=== PATIENT | male | born 1950 | race Two or more races ===

== ENCOUNTER 2017-10-02 05:29 | Inpatient (IN) | payer BC ==
[2017-10-02] VITALS (9 sets, daily range): BP systolic 97–119; BP diastolic 50–69
[~2017-10-02] VITALS: Ht 182.9 cm; Wt 124.7 kg
[2017-10-02] MEDS ORDERED: CEFAZOLIN SODIUM/DEXTROSE,ISO 50 ML IV ONE (06:17)
[2017-10-02] MEDS ORDERED: CELECOXIB 100 MG CAPSULE ONE (06:17)
[2017-10-02] MEDS ORDERED: oxyCODONE HCL SR 10MG TAB.SR.12H PO ONE (06:17)
[2017-10-02] MEDS ORDERED: ACETAMINOPHEN 325 MG TABLET ONE (06:17)
[2017-10-02] MEDS ORDERED: BUPIVACAINE 0.5 % PF 150 MG/30 ML VIAL ONE ×2 (06:28→07:12)
[2017-10-02] MEDS ORDERED: BACITRACIN 50000 UNITS/VIAL ONE ×3 (06:28→09:20)
[2017-10-02] MEDS ORDERED: KETOROLAC TROMETHAMINE INJ 30 MG/ML VIAL ONE ×2 (06:28→07:12)
[2017-10-02] MEDS ORDERED: FENTANYL PF 100MCG/2ML AMPUL ONE (07:19)
[2017-10-02] MEDS ORDERED: ROCURONIUM BROMIDE 50 MG/5 ML ONE (07:20)
[2017-10-02] MEDS ORDERED: MIDAZOLAM HCL 2 MG/2ML VIAL ONE (07:20)
[2017-10-02] MEDS ORDERED: TRANEXAMIC ACID 3,000 MG in SODIUM CHLORIDE IRRIG SOLUTION 70 ML IR ONE (08:00)
[2017-10-02] MEDS ORDERED: SENNOSIDES 8.6 MG TABLET PO PRN (10:00)
[2017-10-02] MEDS ORDERED: HYDROCODONE/APAP 5/325MG 1 EACH TABLET PO PRN ×2 (10:00)
[2017-10-02] MEDS ORDERED: DOCUSATE SODIUM 250 MG CAPSULE PO PRN (10:00)
[2017-10-02] MEDS ORDERED: MORPHINE SULFATE INJ 4 MG/ML DISP.SYRIN IV PRN (10:00)
[2017-10-02] MEDS ORDERED: ONDANSETRON HCL/PF 4 MG/2 ML VIAL IVP PRN (10:00)
[2017-10-02] MEDS ORDERED: ZOLPIDEM TARTRATE 5 MG TABLET PO PRN (10:00)
[2017-10-02] MEDS ORDERED: ACETAMINOPHEN 325 MG TABLET PO PRN (10:00)
[2017-10-02] MEDS ORDERED: BISACODYL SUPP (10 MG) 10 MG/SUPP.RECT SUPP.RECT RC PRN (10:00)
[2017-10-02] MEDS ORDERED: DILT180C PO (10:19)
[2017-10-02] MEDS ORDERED: FLUT1DIS3 IH (10:19)
[2017-10-02] MEDS ORDERED: APIX2.5T PO (10:19)
--- NOTE | 2017-10-02 10:47 | NUR ---
RECEIVED PT FROM OR RECOVERY. NO SOB OR DISTRESS. PATIENT REPORTS TOLERABLE PAIN AT THIS TIME. PATIENT ORIENTED TO ROOM AND CALL LIGHT. VITALS CHECKED AND RECORDED. MEDICATIONS RECONCILED AND FAXED TO PHARMACY. ALL PHYSICIAN ORDERS PLACED IN [facility]. BED IN A LOW POSITION, CALL LIGHT WITHIN PATIENT REACH. WILL CONTINUE TO MONITOR.
--- NOTE | 2017-10-02 12:35 | NUR ---
UNABLE TO HANG DUE LR ORDERED THERE IS NONE ON THE FLOOR. CALLED [facility] TO REFILL. THEY STATE THEY WILL FILL THE OMNICELL SOON POSSIBLE.
[2017-10-02] MEDS: ANCEF 1 GM/50 ML D5W IV SCH ×4 (13:05→21:28)
[2017-10-02] MEDS: IV LR 1000 ML 1,000 ML IV PRN (13:06)
--- NOTE | 2017-10-02 21:00 | NUR ---
TOOK PATIENT OFF OF CPM PER PT REQUEST. PATIENT TOLERATED WELL. REPORTS LITTLE TO NO PAIN.
[2017-10-02] MEDS ORDERED: PANTOPRAZOLE 40 MG TABLET.DR PO ONE (23:49)
[2017-10-02] MEDS: PANTOPRAZOLE 40 MG TABLET.DR PO SCH (23:58)
[2017-10-03] MEDS ORDERED: MAG HYDROX/AL HYDROX/SIMETH 30 ML UDC PO PRN
[2017-10-03] MEDS ORDERED: diphenhydrAMINE HCL 25 MG CAPSULE PO PRN
[2017-10-03] MEDS ORDERED: ONDANSETRON HCL/PF 4 MG/2 ML VIAL IV PRN
[2017-10-03] MEDS ORDERED: CLONIDINE HCL 0.1 MG TABLET PO PRN
[2017-10-03] MEDS ORDERED: MAGNESIUM HYDROXIDE 30 ML UDC PO PRN
[2017-10-03] MEDS ORDERED: MORPHINE SULFATE INJ 4 MG/ML DISP.SYRIN IM PRN
[2017-10-03] MEDS: IV LR 1000 ML 1,000 ML IV PRN ×3 (00:59→21:35)
[2017-10-03] MEDS ORDERED: HYDROCODONE/APAP 5/325MG 1 EACH TABLET ONE (05:27)
[2017-10-03] MEDS: HYDROCODONE/APAP 5/325MG 1 EACH TABLET PO PRN ×2 (05:28→14:57)
[2017-10-03] MEDS: APIXABAN 2.5 MG TABLET PO SCH ×2 (05:29→17:08)
--- NOTE | 2017-10-03 06:06 | NUR ---
PT IS AWAKE. HAD TO OVERRIDE A NORCO TABLET DR LANG CHANGED THE ORDER OVER NIGHT AND PHARMACY IS NOT YET IN TO VERIFY. TAUGHT PATIENT HOW TO USE INCENTIVE SPIROMETER MACHINE AND EXPLAINED ITS USE; TOLD PATIENT TO USE TEN TIMES EVERY HOUR WHILE HE IS AWAKE. PATIENT RETURNS DEMONSTRATION CORRECTLY AND VERBALIZES UNDERSTANDING OF USE OF MACHINE.
--- NOTE | 2017-10-03 06:13 | NUR ---
RN CLOSING NOTES NO SIGNIFICANT CHANGES IN PATIENT CONDITION OVERNIGHT. PATIENT IS CURRENTLY RESTING COMFORTABLY IN BED USING INCENTIVE SPIROMETER. NO SOB OR DISTRESS NOTED AT THIS TIME. PATIENT REPORTS TOLERABLE PAIN POST NORCO DOSE. BED IN A LOW POSITION, CALL LIGHT WITHIN PATIENT REACH. WILL ENDORSE FOR JANE.
[2017-10-03 06:31] LABS: HEMATOCRIT 41 % (39-51); HEMOGLOBIN 13.7 g/dL (13.5-17.5); LYMPHOCYTES # (AUTO) 0.9 /CMM (0.8-4.8); LYMPHOCYTES % (AUTO) 5.9 % (20.0-44.0); MEAN CORPUSCULAR HEMOGLOBIN 31 PG (26.0-33.0); MEAN CORPUSCULAR HGB CONC 33 g/dl (31.0-36.0); MEAN CORPUSCULAR VOLUME 91 fL (80-96); MONOCYTES # (AUTO) 1.2 /CMM (0.1-1.30); MONOCYTES % (AUTO) 8.1 % (2.0-12.0); NEUTROPHILS # (AUTO) 13.1 /CMM (1.8-8.9); PLATELET COUNT (AUTO) 163 /CMM (150-450); RDW COEFFICIENT OF VARIATION 13.3 (11.5-15.0); RED BLOOD CELL COUNT(AUTO) 4.48 MIL/uL (4.5-6.0); WHITE BLOOD COUNT (AUTO) 15.2 K/uL (4.3-11.0)
--- NOTE | 2017-10-03 07:20 | NUR ---
RN NOTES PT IS SITTING UP IN BED, NO SIGNS OF DISTRESS. PT ON RA, RESPIRATIONS ARE EVEN AND UNLABORED. IV ON LFA INTACT AND PATENT, RUNNING LR @ 100ML/HR. SAFETY MEASURES ARE IN PLACE, CALL LIGHT IS IN REACH. WILL CONTINUE TO MONITOR.
[2017-10-03 08:00] VITALS: BP 136/75
[2017-10-03] MEDS: FLUTICASONE/VILANTEROL 1 EACH BLST.W.DEV IH SCH (08:24)
[2017-10-03] MEDS: DOCUSATE SODIUM 100 MG CAPSULE PO SCH ×2 (08:24→17:08)
[2017-10-03] MEDS: DILTIAZEM HCL CD 180 MG PO SCH (08:25)
[2017-10-03] MEDS ORDERED: PNEUMOCOCCAL 23-VAL P-SAC VAC 0.5 ML VIAL SQ ONE (09:00)
[2017-10-03 16:00] VITALS: BP 125/70
--- NOTE | 2017-10-03 18:44 | NUR ---
RN NOTES PT IS SITTING AT THE SIDE OF BED COMFORTABLY. PT ON RA, RESPIRATIONS ARE EVEN AND UNLABORED. IV ON LFA INTACT AND RUNNING LR @ 100ML/HR. ALL MEDS WERE GIVEN ORDERED. PT WAS ABLE TO GET UP WITH PHYSICAL THERAPY TWICE TODAY. PAIN MEDICATION LAST GIVEN AT 1500. SAFETY MEASURES ARE IN PLACE, CALL LIGHT IS IN REACH. WILL ENDORSE TO LOAN ORIGINATOR RN FOR CONTINUITY OF CARE.
[2017-10-03] MEDS: HYDROCODONE/APAP 10/325MG 1 EA TABLET PO PRN (18:54)
--- NOTE | 2017-10-03 19:00 | NUR ---
RN NOTES RECEIVED PT IN BED RESTING COMFORTABLY. A/O X 4, PT IN STABLE CONDITION, NO S/S OF DISTRESS. NO COMPLAINS OF PAIN AT THIS TIME. SAFETY MEASURES ARE IN PLACE, CALL LIGHT IS IN REACH. WILL CONTINUE TO MONITOR.
[2017-10-03 20:00] VITALS: BP 139/64
[2017-10-03] MEDS: PANTOPRAZOLE 40 MG TABLET.DR PO SCH (21:37)
[2017-10-04] MEDS: APIXABAN 2.5 MG TABLET PO SCH (05:45)
--- NOTE | 2017-10-04 06:24 | NUR ---
MS RN CLOSING NOTES IN BED ASLEEP AND EASILY AWAKEN, HOB ELEVATED, TOLERATING ROOM AIR 98% RESPIRATIONS EVEN AND UNLABORED. AFEBRILE, IN STABLE CONDITION. NOT IN S/S DISTRESS. ALL NURSING CARE RENDERED. NEEDS ATTENDED AND ANTICIPATED, KEPT CLEAN AND DRY AND COMFORTABLE, NO COMPLAINS OF PAIN AT THIS TIME. GOOD SKIN CARE PROVIDED. FREQUENT VISUAL CHECK DONE FOR SAFETY EVERY 2 HOURS. ON LOW BED AT ALL TIMES TO ENSURE SAFETY. SAFE HAZARD FREE ENVIRONMENT PROVIDED. CALL LIGHT WITHIN EASY TO REACH. WILL ENDORSE NEXT SHIFT CONTINUITY OF CARE.
--- NOTE | 2017-10-04 07:05 | NUR ---
RN NOTES PT IS RESTING IN BED COMFORTABLY. PT ON RA, RESPIRATIONS ARE EVEN AND UNLABORED, NO SIGNS OF DISTRESS. IV ON LFA INTACT AND RUNNING LR @ 100ML/HR. SAFETY MEASURES ARE IN PLACE, CALL LIGHT IS IN REACH. WILL CONTINUE TO MONITOR.
[2017-10-04 08:00] VITALS: BP 128/67
[2017-10-04] MEDS: DOCUSATE SODIUM 100 MG CAPSULE PO SCH (08:13)
[2017-10-04 08:14] VITALS: BP 128/67
[2017-10-04] MEDS: HYDROCODONE/APAP 10/325MG 1 EA TABLET PO PRN (08:14)
[2017-10-04] MEDS: FLUTICASONE/VILANTEROL 1 EACH BLST.W.DEV IH SCH (08:14)
[2017-10-04] MEDS: DILTIAZEM HCL CD 180 MG PO SCH (08:14)
--- NOTE | 2017-10-04 12:41 | NUR ---
RN NOTES PT WAS DISCHARGED HOME IN STABLE CONDITION. R KNEE DRESSING WAS CHANGED BY EMERITA VILLARREAL. EMERITA VILLARREAL CLEARED HIM BY ORTHO AND TOLD PT TO FOLLOW UP IN 1-2 WEEKS. DISCHARGE PAPERS WERE SIGNED AND BELONGINGS LIST WAS SIGNED. ID BAND AND IV WERE REMOVED. PT WAS GIVEN NEW PRESCRIPTION AND BELONGINGS. PTS PICKED UP PT IN PRIVATE CAR TO TAKE HOME.
== END 2017-10-04 12:40 | disposition home or self-care (01) | DRG 470 ==
LOC: DS 05:29 → MEDSG2 10:31
PROVIDERS: ADMIT Specialist
PROC: 0SRC0J9 Replacement of Right Knee Joint with Synthetic Substitute, Cemented, Open Approach (ICD-10-PCS; principal; 2017-10-02 07:46)
DX: M17.11 Unilateral primary osteoarthritis, right knee (principal); J44.9 Chronic obstructive pulmonary disease, unspecified; E66.01 Morbid (severe) obesity due to excess calories; I48.91 Unspecified atrial fibrillation; H91.93 Unspecified hearing loss, bilateral; Z68.37 Body mass index [BMI] 37.0-37.9, adult; J45.909 Unspecified asthma, uncomplicated; Z90.49 Acquired absence of other specified parts of digestive tract
CPT/HCPCS: 36415; 85025-TC; 86850-TC; 86921-TC; 87081-TC; 88305-TC; 88311-TC; 90732; 97110-TC; 97116-TC; 97530-TC; 97760-TC; A4217; A6402; C1713; J0690; J1885; J2250; J2270; J2405; J2704; J3010; J3490; J7060; J7120; Z7610